=== PATIENT | male | born 1990 | race Caucasian/White ===

== ENCOUNTER 2021-06-10 20:02 | Emergency (ER) | payer OTHER ==
[~2021-06-10] VITALS: Ht 182.9 cm; Wt 106.8 kg
[~2021-06-10 20:02] MED LIST: NOCURR
[2021-06-10 20:23] VITALS: BP 126/71
== END 2021-06-10 22:01 | disposition home or self-care (01) ==
LOC: EMS 20:10
DX: S90.31XA Contusion of right foot, initial encounter (principal); X58.XXXA Exposure to other specified factors, initial encounter; Y93.89 Activity, other specified; Y92.89 Other specified places as the place of occurrence of the external cause; Y99.8 Other external cause status
CPT/HCPCS: 99281; Z7502